=== PATIENT | male | born 1980 ===

== ENCOUNTER 2022-05-02 12:24 | Inpatient (IN) | payer SELFPAY ==
[2022-05-02] VITALS (9 sets, daily range): BP systolic 111–141; BP diastolic 71–93; PULSE 64–125; RESP 15–19; TEMP 36.4–36.8; O2SAT 92–95
--- NOTE | 2022-05-02 12:33 | XR_ITS ---
WS: [id number] EXAMINATION: XR chest 1V portable [id number] REASON FOR EXAM: chest pain COMPARISON: None available. ORDER DATE: 05/02/2022 12:33 PM TECHNIQUE: A single, portable frontal chest x-ray was obtained. X-RAY FINDINGS: The lungs are clear. Pleural spaces are clear. No pleural effusions or pneumothorax. Cardiomediastinal silhouette is normal. No evidence for pulmonary edema. Soft tissue and osseous structures are unremarkable. No tubes or lines are present. XR/XR chest 1V portable [id number] IMPRESSION: Unremarkable frontal portable chest x-ray.
--- NOTE | 2022-05-02 12:33 | ECG_ITS ---
[facility] Test Date: 2022-05-02 Pat Name: Pascual Castaneda Department: Room: Gender: Male [employer]ator: : 1980 Requested By: Mey Phillips Order Number: [id number] Sheila MD: Diego Duron M.D. Measurements Intervals [place] Rate: 72 P: 37 CO: 136 QRS: 100 QRSD: 102 T: 12 QT: 374 QTc: 410 Interpretive Statements SINUS RHYTHM WITH SINUS ARRHYTHMIA BORDERLINE RIGHT AXIS DEVIATION [QRS AXIS > 90] LOW QRS VOLTAGE IN PRECORDIAL LEADS [QRS DEFLECTION < 1.0 mV IN CHEST LEADS] INCOMPLETE RIGHT BUNDLE BRANCH BLOCK [90+ ms QRS DURATION, TERMINAL R IN V1/V2, 40+ ms S IN I/aVL/V4/V5/V6] PROBABLE INFERIOR MYOCARDIAL INFARCTION , PROBABLY OLD [35 ms Q WAVE IN II/aVF] No previous ECG available for comparison Electronically Signed On 05-02-2022 16:32:16 CDT by Diego Duron M.D. [id number]
--- NOTE | 2022-05-02 13:16 | CTR_ITS ---
PROCEDURE INFORMATION: Exam: CTA Chest With Contrast Exam date and time: 05/02/2022 2:21 PM Age: 41 years old Clinical indication: Pain; Dyspnea; Chest pressure; Additional info: Dyspena chest pain TECHNIQUE: Imaging protocol: Computed tomographic angiography of the chest with contrast. 3D rendering (Not supervised by radiologist): MIP and/or 3D reconstructed images were created by the technologist. Radiation optimization: All CT scans at this facility use at least one of these dose optimization techniques: automated exposure control; mA and/or kV adjustment per patient size (includes targeted exams where dose is matched to clinical indication); or iterative reconstruction. Contrast material: OMNI 350; Contrast volume: 97 ml; Contrast route: INTRAVENOUS (IV); REPORTING DATA: Count of CT and Cardiac NM exams in prior 12 months: This patient has received 0 known CTs and 0 known cardiac nuclear medicine studies in the 12 months prior to the current study. COMPARISON: No relevant prior studies available. RADIATION DOSE METRICS: Total DLP (mGy-cm): 444.76 FINDINGS: Pulmonary arteries: The pulmonary arteries are adequately opacified for evaluation to the subsegmental level. There is no filling defect to suggest embolism. Aorta: The aorta is unremarkable. There is no aneurysm. Lungs: There is subsegmental atelectasis in the left lower lobe. There is no consolidation. Pleural spaces: There is no pleural effusion or pneumothorax. Heart: There is mild cardiac enlargement. There is no pericardial effusion. Lymph nodes: There is no mediastinal or hilar lymphadenopathy. Liver: There is diffuse very low attenuation of the liver parenchyma (water density). Pancreas: There is edema associated with the pancreatic tail. Spleen: The spleen is moderately enlarged. Bones/joints: Bones are unremarkable. Soft tissues: The extrathoracic soft tissues are unremarkable. CT/CT angio chest PE protcl [id number] IMPRESSION: 1. Edema at the pancreatic tail. Possible acute interstitial edematous pancreatitis. Correlate with pancreatic enzyme levels and consider abdomen CT. 2. Severe hepatic steatosis. 3. Moderate splenic enlargement. 4. No pulmonary embolism.
[2022-05-02 13:35] LABS: ABG PCO2 49.2 mmHg (35-45); ABG PH Result 7.41 (7.35-7.45); Alveolar-Arterial Oxygen Gradi 1.2 mmHg (5-10); Arterial Blood Gas Hematocrit 49.7 % (42-52); Base Excess ABG 4.9 mmol/L (-2.0-2.0); Blood Gas Allen Test Pos; Blood Gas Operator Identificat BROMA; Blood Gas Sample Site Radial, left; Blood Gas Sample Type Arterial; Carboxyhemoglobin 1.6 %THgb (0.4-20.1); HCO3 ABG 30.9 mmol/L (22-26); HGB O2 Sat 92.4 % (95-100); Ionized Calcium Level - ABG 1.2 mmol/L (1.1-1.4); Methemoglobin 2.9 % (0.4-1.5); Oxygen Device NC; Oxygen Saturation ABG 96.8; PO2 ABG 79.8 mmHg (80.0-100.0); Potassium Level - ABG 3.6 mmol/L (3.5-5.0); Total Hemoglobin 16.2 g/dL (14-18)
[2022-05-02 13:43] LABS: Albumin Level 4.3 g/dL (3.5-5.2); Alkaline Phosphatase 92 U/L (40-130); Blood Urea Nitrogen 10 mg/dL (6-20); Calcium 9.5 mg/dL (8.5-10.5); Carbon Dioxide 25 mmol/L (22-29); Chloride 93 mmol/L (98-107); Glomerular Filtration Rate 107.1 mL/min (90-130); Glucose 454 mg/dL (65-115); Osmolality Calculated 297 mOsm/kg (285-295); Sodium 134 mmol/L (136-145); Total Bilirubin 0.5 mg/dL (0.15-1.2); Total Protein 7.3 g/dL (6.6-8.7)
[2022-05-02 13:44] LABS: Anion Gap 19.6 (5-19); Potassium 3.6 mmol/L (3.5-5.1)
[2022-05-02 13:54] LABS: Alanine Aminotransferase 70 U/L (0-41); Aspartate Amino Transferase 5 U/L (0-40); Troponin(5th) Baseline 6 ng/L (0-15)
--- NOTE | 2022-05-02 13:55 | W.ED.CHESTPA ---
HPI - Chest Pain General: Chief Complaint: Chest Pain Stated Complaint: n/v chest pain Time Seen by Provider: 05/02/22 12:44 Source: patient Mode of arrival: ambulatory History of Present Illness: 41-year-old male presents emergency room complaint initially of chest pain and shortness of breath began suddenly while he was at work today. No history of coronary artery disease. He is somewhat short of breath has pain with taking a deep breath. No hemoptysis. Nausea without vomiting. MD complaint: chest pain Onset (ago): hour(s) Timing of current episode: constant Prior episodes: No Onset: during rest Relieving factors: nothing Exacerbating factors: nothing Context: recent illness Associated symptoms: Deny abdominal pain, diaphoresis, dyspnea, fever(s), leg edema, nausea, palpitations, sense of impending doom, syncope or vomiting Treatment prior to arrival: none Review of Systems Const: Denies: fever(s), chills, fatigue, malaise or diaphoresis ENMT: Denies: throat pain, ear or mastoid pain, nasal discharge or nasal congestion Card: Reports: chest pain; Denies: palpitations, irregular heart rhythm, edema or syncope Resp: Denies: dyspnea GI: Denies: abdominal pain, nausea or vomiting : Denies: flank pain, dysuria, urinary frequency or urinary urgency Skin/Breast: Denies: rash or pruritus Physical Exam Const: GENERAL APPEARANCE: cooperative ORIENTATION/CONSCIOUSNESS: Yes awake, Yes oriented to person, Yes oriented to place and Yes oriented to time HENMT: COMMON NORMALS: normocephalic, atraumatic and hearing grossly normal bilaterally HEAD & SCALP: normocephalic and atraumatic Resp: COMMON NORMALS: normal respiratory effort, No retractions, No use of accessory muscles and clear to auscultation bilaterally AUSCULTATION: clear to auscultation bilaterally Cardio: COMMON NORMALS: regular rate, regular rhythm and No murmurs present (Cardio) RATE: regular rate RHYTHM: regular rhythm GI: COMMON NORMALS: No hepatosplenomegaly present AUSCULTATION: Yes normoactive bowel sounds PALPATION: Yes Tenderness to palpation present (GI) Details: LUQ, No Guarding due to palpation present (GI) and Yes No hepatosplenomegaly present Extremity: COMMON NORMALS: normal to inspection, capillary refill normal, no clubbing, cyanosis or edema, no calf tenderness and no pedal edema Neuro: SENSORIUM/ORIENTATION: Yes oriented to person, Yes oriented to place and Yes oriented to time Skin: COMMON NORMALS: no rashes or lesions noted GENERAL SKIN EXAM: no rashes or lesions noted Course Vital Signs: Vital signs: Vital Signs Temperature 98.2 F 05/04/22 04:00 Pulse Rate 117 H 05/04/22 09:00 Respiratory Rate 16 05/04/22 09:00 Blood Pressure 139/85 05/04/22 09:00 Pulse Oximetry 93 05/04/22 07:00 Oxygen Delivery Me thod 05/02/22 20:43 Oxygen Flow Rate 1 05/02/22 20:43 MDM - Chest Pain Medical Decision Making Labs imaging and EKG reviewed. Cardiac enzymes show no significant change EKG does not show acute ST changes. CTA of the chest does not show PE but does show acute pancreatitis CT of the abdomen and pelvis confirms. Triglycerides elevated blood sugar also markedly elevated we will give IV insulin and fluids here. I discussed Dr. Son. Early result of the triglycerides Dr. Son started to insulin drip and will be admitting the patient to the ICU. Medical Records I reviewed the patient's medical records. Lab Data I reviewed the patient's lab results. 05/02/22 12:50 05/02/22 12:50 Radiology Impressions Chest CTA 05/02/22 13:16 IMPRESSION: 1. Edema at the pancreatic tail. Possible acute interstitial edematous pancreatitis. Correlate with pancreatic enzyme levels and consider abdomen CT. 2. Severe hepatic steatosis. 3. Moderate splenic enlargement. 4. No pulmonary embolism. Abdomen/Pelvis CT 05/02/22 16:11 IMPRESSION: 1. Acute pancreatitis. 2. Hepatomegaly and hepatic steatosis. Abdomen X-Ray 05/04/22 04:00 IMPRESSION: Nonspecific bowel gas pattern Chest X-Ray 05/04/22 04:00 IMPRESSION: Unremarkable frontal portable chest x-ray. Laboratory Results WBC 11.9 10^3/uL (4.0-10.0) H 05/02/22 12:50 RBC 6.23 10^6/uL (4.1-5.3) H 05/02/22 12:50 Hgb 17.0 g/dL (11.7-16.6) H 05/02/22 12:50 Hct 49.4 % (42.0-52.0) 05/02/22 12:50 MCV 79.3 fl (80-94) L 05/02/22 12:50 MCH 27.3 pg (28.0-34.0) L 05/02/22 12:50 MCHC 34.4 g/dL (30.0-36.0) 05/02/22 12:50 RDW 14.8 % (12.1-15.1) 05/02/22 12:50 Plt Count 230 10^3/cmm (130-400) 05/02/22 12:50 MPV 11.4 fL (7.4-10.4) H 05/02/22 12:50 Neut % (Auto) 54.4 % 05/02/22 12:50 Lymph % (Auto) 35.5 % 05/02/22 12:50 Garfield % (Auto) 6.0 % 05/02/22 12:50 Eos % (Auto) 2.6 % 05/02/22 12:50 Baso % (Auto) 0.8 % 05/02/22 12:50 Neut # (Auto) 6.49 10^3/uL (1.8-7.7) 05/02/22 12:50 Lymph # (Auto) 4.2 10^3/uL (0.8-4.8) 05/02/22 12:50 Garfield # (Auto) 0.7 10^3/uL (0.2-0.9) 05/02/22 12:50 Eos # (Auto) 0.3 10^3/uL (0.0-0.8) 05/02/22 12:50 Baso # (Auto) 0.1 10^3/uL (0.0-0.1) 05/02/22 12:50 Nucleated RBC % (auto) 1.4 % 05/02/22 12:50 Nucleated RBCs # 0.2 /100WBC 05/02/22 12:50 Specimen Type Arterial 05/02/22 13:25 Sample Site Radial, left 05/02/22 13:25 ABG pH 7.41 (7.35-7.45) 05/02/22 13:25 ABG pCO2 49.2 mmHg (35-45) H 05/02/22 13:25 ABG pO2 79.8 mmHg (80.0-100.0) L 05/02/22 13:25 ABG HCO3 30.9 mmol/L (22-26) H 05/02/22 13:25 ABG O2 Saturation 96.8 05/02/22 13:25 ABG Base Excess 4.9 mmol/L (-2.0-2.0) H 05/02/22 13:25 Bennett Test Pos 05/02/22 13:25 A-a O2 Gradient 1.2 mmHg (5-10) L 05/02/22 13:25 Hematocrit 49.7 % (42-52) 05/02/22 13:25 Hgb O2 Saturation 92.4 % (95-100) L 05/02/22 13:25 Carboxyhemoglobin 1.6 %THgb (0.4-20.1) 05/02/22 13:25 Methemoglobin 2.9 % (0.4-1.5) H 05/02/22 13:25 Total Hemoglobin 16.2 g/dL (14-18) 05/02/22 13:25 Sodium 140.0 mmol/L (131-143) 05/02/22 13:25 Potassium 3.6 mmol/L (3.5-5.0) 05/02/22 13:25 Glucose 459.0 mg/dL (70-115) H 05/02/22 13:25 Ionized Calcium 1.2 mmol/L (1.1-1.4) 05/02/22 13:25 O2 Delivery Device Nc 05/02/22 13:25 O2 Liters/Min 228.0 % 05/02/22 13:25 Gate Mortiser Operator ID Broma 05/02/22 13:25 Sodium 134 mmol/L (136-145) L 05/02/22 12:50 Potassium 3.6 mmol/L (3.5-5.1) 05/02/22 12:50 Chloride 93 mmol/L (98-107) L 05/02/22 12:50 Carbon Dioxide 25 mmol/L (22-29) 05/02/22 12:50 Anion Gap 19.6 (5-19) H 05/02/22 12:50 BUN 10 mg/dL (6-20) 05/02/22 12:50 Creatinine 0.8 mg/dL (0.7-1.2) 05/02/22 12:50 GFR Calculation 107.1 mL/min (90-130) 05/02/22 12:50 Glucose 454 mg/dL (65-115) H 05/02/22 12:50 Estimat Average Glucose 272 05/02/22 12:50 Hemoglobin A1c 11.1 % (4.0-6.0) H 05/02/22 12:50 Calculated Osmolality 297 mOsm/kg (285-295) H 05/02/22 12:50 Calcium 9.5 mg/dL (8.5-10.5) 05/02/22 12:50 Total Bilirubin 0.5 mg/dL (0.15-1.2) 05/02/22 12:50 AST 5 U/L (0-40) 05/02/22 12:50 ALT 70 U/L (0-41) H 05/02/22 12:50 Alkaline Phosphatase 92 U/L (40-130) 05/02/22 12:50 Troponin T Baseline 6 ng/L (0-15) 05/02/22 12:50 Troponin T 120 Minute 6.00 ng/L (0-15) 05/02/22 14:40 Delta Troponin T 0 ABS# (0-10) 05/02/22 14:40 Total Protein 7.3 g/dL (6.6-8.7) 05/02/22 12:50 Albumin 4.3 g/dL (3.5-5.2) 05/02/22 12:50 Globulin 3.0 g/dL (1.3-4.6) 05/02/22 12:50 Triglycerides 1702 mg/dL (0-150) H 05/02/22 16:40 LDL Cholesterol Direct 24 mg/dL (0-100) 05/02/22 16:40 Lipase 1795 U/L (13-60) H 05/02/22 17:39 Serum Ketones Negative (Negative) 05/02/22 16:40 Discharge Plan Discharge Patient Disposition: Admitted As Inpatient Admit Provider: Kaylen Son Clinical Impression: Acute pancreatitis, Diabetes mellitus, Hypertriglyceridemia Condition: Stable Coding Level of Care Code ED Plating Machine Operator for Chg Fwjoi
[2022-05-02] MEDS: iohexol 350 mg/mL 500 mL Btl (per mL) IV (14:25)
[2022-05-02] MEDS: diphenhydrAMINE 50 mg/mL SDV 1mL IVP (14:34)
[2022-05-02] MEDS: ketorolac 30 mg/mL INJ IVP (14:50)
[2022-05-02] MEDS: sodium chloride 0.9% 1,000 ML 999 ML IV ×3 (15:25→18:00)
[2022-05-02] MEDS: morphine 4 mg/mL SDV 1 mL IVP (15:25)
[2022-05-02] MEDS: ondansetron 2 mg/ML SDV 2 mL 4 MG IVP (15:25)
[2022-05-02 15:29] LABS: Basophils # 0.1 10^3/uL (0.0-0.1); Basophils % 0.8 %; Eosinophils # 0.3 10^3/uL (0.0-0.8); Eosinophils % 2.6 %; Hematocrit 49.4 % (42.0-52.0); Lymphocytes # 4.2 10^3/uL (0.8-4.8); Lymphocytes % 35.5 %; Mean Corpuscular HGB Conc 34.4 g/dL (30.0-36.0); Mean Corpuscular Hemoglobin 27.3 pg (28.0-34.0); Mean Corpuscular Volume 79.3 fl (80-94); Mean Platelet Volume 11.4 fL (7.4-10.4); Monocytes # 0.7 10^3/uL (0.2-0.9); Neutrophils # 6.49 10^3/uL (1.8-7.7); Neutrophils % 54.4 %; Nucleated Red Blood Cells # 0.2 /100WBC; Nucleated Red Blood Cells % 1.4 %; Platelet Count 230 10^3/cmm (130-400); Red Blood Count 6.23 10^6/uL (4.1-5.3); Red Cell Distribution Width 14.8 % (12.1-15.1); White Blood Count 11.9 10^3/uL (4.0-10.0)
--- NOTE | 2022-05-02 15:52 | ECG_ITS ---
[facility] Test Date: 2022-05-02 Pat Name: Pascual Castaneda Department: Room: Gender: Male [employer]ation: : 1980 Requested By: Mey Phillips Order Number: [id number] Sheila MD: Diego Duron M.D. Measurements Intervals [place] Rate: 95 P: 61 FL: 164 QRS: -15 QRSD: 112 T: 19 QT: 366 QTc: 462 Interpretive Statements SINUS RHYTHM INDETERMINATE AXIS LOW QRS VOLTAGE IN PRECORDIAL LEADS [QRS DEFLECTION < 1.0 mV IN CHEST LEADS] INCOMPLETE RIGHT BUNDLE BRANCH BLOCK [90+ ms QRS DURATION, TERMINAL R IN V1/V2, 40+ ms S IN I/aVL/V4/V5/V6] INFERIOR MYOCARDIAL INFARCTION , PROBABLY OLD [40+ ms Q WAVE AND/OR ST/T ABNORMALITY IN II/aVF] Compared to ECG 05/02/2022 12:32:18 Indeterminate axis now present Sinus arrhythmia no longer present Myocardial infarct finding still present Electronically Signed On 05-02-2022 16:45:59 CDT by Diego Duron M.D. [id number]
[2022-05-02 16:09] LABS: Troponin 5 2HR Delta 0 ABS# (0-10)
[2022-05-02 16:09] LABS: Lipase 2680 U/L (13-60)
--- NOTE | 2022-05-02 16:11 | CTR_ITS ---
PROCEDURE INFORMATION: Exam: CT Abdomen And Pelvis Without Contrast Exam date and time: 05/02/2022 5:26 PM Age: 41 years old Clinical indication: Abdominal pain; Localized; Upper TECHNIQUE: Imaging protocol: Computed tomography of the abdomen and pelvis without contrast. Radiation optimization: All CT scans at this facility use at least one of these dose optimization techniques: automated exposure control; mA and/or kV adjustment per patient size (includes targeted exams where dose is matched to clinical indication); or iterative reconstruction. REPORTING DATA: Count of CT and Cardiac NM exams in prior 12 months: This patient has received [address] and 0 known cardiac nuclear medicine studies in the 12 months prior to the current study. COMPARISON: CT angio chest PE protcl [id number] 05/02/2022 2:21 PM RADIATION DOSE METRICS: Total DLP (mGy-cm): 1088.73 FINDINGS: Lungs: Bibasilar atelectasis is noted. Liver: The liver is mildly enlarged and demonstrates fatty infiltration changes. No parenchymal lesion is seen. Gallbladder and bile ducts: Normal. No calcified stones. No ductal dilation. Pancreas: Peripancreatic fat stranding and fluid are noted. No pancreatic ductal dilatation is seen. Spleen: Normal. No splenomegaly. Adrenal glands: Normal. No mass. Kidneys and ureters: Renal excretion of contrast from recent radiographic exam is noted. The kidneys appear normal. No hydronephrosis. Stomach and bowel: Unremarkable. No obstruction. No mucosal thickening. Appendix: The appendix is normal. Intraperitoneal space: Unremarkable. No free air. No significant fluid collection. Vasculature: Unremarkable. No abdominal aortic aneurysm. Lymph nodes: Unremarkable. No enlarged lymph nodes. Urinary bladder: Unremarkable as visualized. Reproductive: Unremarkable as visualized. Bones/joints: Bilateral L5 spondylolysis is noted. No acute fracture. Soft tissues: Small umbilical and bilateral indirect inguinal hernias containing fat are noted. CT/CT abdomen pelvis wo con [id number] IMPRESSION: 1. Acute pancreatitis. 2. Hepatomegaly and hepatic steatosis.
[2022-05-02] MEDS: insulin regular-human 100 units/1 mL 10 UNIT IVP (16:44)
[2022-05-02 17:38] LABS: Ketone (Acetest) Serum Negative (Negative)
[2022-05-02 18:31] LABS: Triglycerides 1702 mg/dL (0-150)
[2022-05-02 18:44] LABS: Glucose Point of Care 313 mg/dL (70-110)
[2022-05-02 18:46] LABS: LDL Cholesterol Direct 24 mg/dL (0-100)
[2022-05-02 19:01] LABS: Lipase 1795 U/L (13-60)
[2022-05-02] MEDS: sodium chloride 0.9% 1,000 ML 150 ML IV (19:55)
[2022-05-02 20:55] LABS: Glucose Point of Care 351 mg/dL (70-110)
[2022-05-02 21:12] LABS: Troponin 5 6HR Delta 0 ng/L (0-12)
[2022-05-02] MEDS: morphine 4 mg/mL SDV 1 mL 2 MG IVP (21:29)
[2022-05-02] MEDS: enoxaparin 40 mg/0.4 mL Syringe SUBCUT (21:30)
--- NOTE | 2022-05-02 21:40 | P.HP_ITS ---
Providers/Chief Complaint Admitting Physician: Kaylen Son MD Chief Complaint: n/v chest pain History of Present Illness Pascual Castaneda is a 41 year old male without known significant past medical history who presents to the emergency room today with complaints of abdominal pain, sudden onset this afternoon after eating his lunch. Patient had some meat tacos for lunch at the [employer] where he works. Shortly thereafter he started to feel sick to his stomach and started throwing up. No hematemesis or melena. No diarrhea. In the ER he was found to have hyper glycemia, mild anion gap of 19, negative serum ketones, elevated lipase and CT evidence of acute pancreatitis. Patient does not have a past medical history of pancreatitis. Denies any alcohol consumption recently. He is not a known diabetic. Has a family history of cholesterol problems Review of Systems General: Reports: 10 or more systems reviewed and unremarkable except in HPI and below Const: Denies: fever(s), chills or body aches Eyes: Denies: change in vision, blurry vision or photophobia ENMT: Reports: hoarseness; Denies: throat pain, enlarged tonsils, odynophagia or nasal congestion Card: Denies: chest pain, palpitations, irregular heart rhythm, edema, swelling of feet/ankles, lightheadedness, pre-syncope, dyspnea on exertion or orthopnea Resp: Denies: dyspnea, productive cough, non-productive cough, wheezing, stridor, pain on inspiration, change in phlegm color, hemoptysis or chest congestion GI: Denies: abdominal pain, nausea, vomiting, hematemesis, coffee ground emesi s, dysphagia, heartburn, diarrhea, constipation, GI cramping, change in stool character, hematochezia or melena : Denies: flank pain, dysuria, urinary frequency, urinary urgency, urinary hesitancy or hematuria Musc: Denies: neck pain, back pain, extremity pain, joint swelling, joint warmth or deformity Neuro: Denies: headache(s), numbness in extremities, weakness in extremities, sensory changes, difficulty walking, frequent falls, dizziness, vertigo, behavioral changes, Slurred speech present or seizure-like activity Psych: Denies: anxiety, depression, suicidal ideation or homicidal ideation Endo: Denies: polyuria, polydipsia, tired all the time, cold intolerance or hot flashes Anuj/Lymph: Denies: easy bruising or easy bleeding Medications/Allergies Home Medications Medication Instructions Recorded Confirmed Last Taken Type acetaminophen 500 mg tablet 1,000 mg PO Q6H PRN Pain 05/02/22 05/02/22 Unknown History Allergies Allergy/AdvReac Type Severity Reaction Status Date / Time Iodinated Contrast Media Allergy Severe ALGY-Swell Verified 05/02/22 14:31 Lip/Tongue/Throat Vitals/I&O/Wt Last Vital Signs Temp 97.5 F L 05/02/22 20:43 Pulse 111 H 05/02/22 20:43 Resp 19 H 05/02/22 21:29 BP 136/83 05/02/22 20:43 Pulse Ox 94 05/02/22 21:29 O2 Del Method 05/02/22 20:43 O2 Flow Rate 1 05/02/22 20:43 05/02/22 05/02/22 05/02/22 06:59 14:59 22:59 Intake Total 3000 / 3000 Balance 3000 / 3000 Weight last 48 hrs Weight 107.048 kg Physical Exam Narrative: General: No acute distress, AO x3 HEENT: PERRLA, pupils bilaterally equal and reactive, pallors not present Chest: Normal vesicular breath sounds, no added sounds, equal good air entry bilaterally CVS: S1-S2 regular, no murmurs, no tachycardia, no gallops, no rubs Abdomen: TTP epigatsric area and llQ Neuro: No focal deficits, no facial deformity, AO x3, power 5/5 in all limbs Data 05/02/22 12:50 05/02/22 12:50 Other Labs: [address] [address] [address] Scan Report Signed Patient: Pascual Castaneda Unit #: [id number] : 1980 Age/Sex: 41 / M ADM Date: 05/02/22 Loc: ER Room/Bed: Attending Dr: Ordering Provider/Ordering MD: Wade Doan DO Date of Service: 05/02/22 Procedure(s): CT abdomen pelvis wo con [id number] Accession Number(s): [id number] Report Number: [id number] PROCEDURE INFORMATION: Exam: CT Abdomen And Pelvis Without Contrast Exam date and time: 05/02/2022 5:26 PM Age: 41 years old Clinical indication: Abdominal pain; Localized; Upper TECHNIQUE: Imaging protocol: Computed tomography of the abdomen and pelvis without contrast. Radiation optimization: All CT scans at this facility use at least one of these dose optimization techniques: automated exposure control; mA and/or kV adjustment per patient size (includes targeted exams where dose is matched to clinical indication); or iterative reconstruction. REPORTING DATA: Count of CT and Cardiac NM exams in prior 12 months: This patient has received [address] and 0 known cardiac nuclear medicine studies in the 12 months prior to the current study. COMPARISON: CT angio chest PE protcl [id number] 05/02/2022 2:21 PM RADIATION DOSE METRICS: Total DLP (mGy-cm): 1088.73 FINDINGS: Lungs: Bibasilar atelectasis is noted. Liver: The liver is mildly enlarged and demonstrates fatty infiltration changes. No parenchymal lesion is seen. Gallbladder and bile ducts: Normal. No calcified stones. No ductal dilation. Pancreas: Peripancreatic fat stranding and fluid are noted. No pancreatic ductal dilatation is seen. Spleen: Normal. No splenomegaly. Adrenal glands: Normal. No mass. Kidneys and ureters: Renal excretion of contrast from recent radiographic exam is noted. The kidneys appear normal. No hydronephrosis. Stomach and bowel: Unremarkable. No obstruction. No mucosal thickening. Appendix: The appendix is normal. Intraperitoneal space: Unremarkable. No free air. No significant fluid collection. Vasculature: Unremarkable. No abdominal aortic aneurysm. Lymph nodes: Unremarkable. No enlarged lymph nodes. Urinary bladder: Unremarkable as visualized. Reproductive: Unremarkable as visualized. Bones/joints:? Bilateral L5 spondylolysis is noted. No acute fracture. Soft tissues: Small umbilical and bilateral indirect inguinal hernias containing fat are noted. CT/CT abdomen pelvis wo con [id number] IMPRESSION: 1. ? Acute pancreatitis. 2. ? Hepatomegaly and hepatic steatosis. ? [employer] [address] [address] [address] Scan Report Signed Patient: Pascual Castaneda Unit #: [id number] : 1980 Age/Sex: 41 / M ADM Date: 05/02/22 Loc: ER Room/Bed: Attending Dr: Ordering Provider/Ordering MD: Wade Doan DO Date of Service: 05/02/22 Procedure(s): CT angio chest PE protcl [id number] Accession Number(s): [id number] Report Number: [id number] PROCEDURE INFORMATION: Exam: CTA Chest With Contrast Exam date and time: 05/02/2022 2:21 PM Age: 41 years old Clinical indication: Pain; Dyspnea; Chest pressure; Additional info: Dyspena chest pain TECHNIQUE: Imaging protocol: Computed tomographic angiography of the chest with contrast. 3D rendering (Not supervised by radiologist): MIP and/or 3D reconstructed images were created by the technologist. Radiation optimization: All CT scans at this facility use at least one of these dose optimization techniques: automated exposure control; mA and/or kV adjustment per patient size (includes targeted exams where dose is matched to clinical indication); or iterative reconstruction. Contrast material: OMNI 350; Contrast volume: 97 ml; Contrast route: INTRAVENOUS (IV);? REPORTING DATA: Count of CT and Cardiac NM exams in prior 12 months: This patient has received 0 known CTs and 0 known cardiac nuclear medicine studies in the 12 months prior to the current study. COMPARISON: No relevant prior studies available. RADIATION DOSE METRICS: Total DLP (mGy-cm): 444.76 FINDINGS: Pulmonary arteries: The pulmonary arteries are adequately opacified for evaluation to the subsegmental level. There is no filling defect to suggest embolism. Aorta: The aorta is unremarkable. There is no aneurysm. Lungs: There is subsegmental atelectasis in the left lower lobe. There is no consolidation. Pleural spaces: There is no pleural effusion or pneumothorax. Heart: There is mild cardiac enlargement. There is no pericardial effusion. Lymph nodes: There is no mediastinal or hilar lymphadenopathy. Liver: There is diffuse very low attenuation of the liver parenchyma (water density). Pancreas: There is edema associated with the pancreatic tail. Spleen: The spleen is moderately enlarged. Bones/joints: Bones are unremarkable. Soft tissues: The extrathoracic soft tissues are unremarkable. CT/CT angio chest PE protcl [id number] IMPRESSION: 1. ? Edema at the pancreatic tail. Possible acute interstitial edematous pancreatitis. Correlate with pancreatic enzyme levels and consider abdomen CT. 2. ? Severe hepatic steatosis. 3. ? Moderate splenic enlargement. 4. ? No pulmonary embolism. A&P Assessment and plan (1) Acute pancreatitis: (2) Hypertriglyceridemia: Plan hypertriglyceridemia induced pancreatitis admit to ICU start insulin drip at 0.1u/kg/hr Tg level 1700 accuecheck every one hour tg level q12h until goal <500 check lipid panel , a1c , alcohol level, drug screen , serum ketones npo ns @150 cc/hr k goal 4 prn morphine, toradol for pain Attestations Medical Necessity Statement*: > 2 midnight admission anticipated for insulin drip, IVF, managaemnt of pancreatitis Coding Level of Care Code Critical Care >/= 30 minutes Diagnoses Acute pancreatitis K85.90 Hypertriglyceridemia E78.1
--- NOTE | 2022-05-02 21:53 | ECG_ITS ---
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 Measurements Intervals [place] Rate: 120 P: 60 CT: 162 QRS: 149 QRSD: 103 T: 19 QT: 336 QTc: 476 Interpretive Statements SINUS TACHYCARDIA INDETERMINATE AXIS INCOMPLETE RIGHT BUNDLE BRANCH BLOCK [90+ ms QRS DURATION, TERMINAL R IN V1/V2, 40+ ms S IN I/aVL/V4/V5/V6] POSSIBLE INFERIOR MYOCARDIAL INFARCTION , PROBABLY OLD [30 ms Q WAVE IN II/aVF] Compared to ECG 05/02/2022 15:52:33 Sinus rhythm no longer present Myocardial infarct finding still present Electronically Signed On 05-03-2022 7:41:30 CDT by Diego Duron M.D. [id number]
[2022-05-02 22:41] LABS: Alcohol Level < 10 mg/dL (0-10)
[2022-05-02] MEDS: insulin regular-human 250 UNIT in sodium chloride 0.9% 250 ML 11.01 UNIT IV (22:43)
[2022-05-02] MEDS: lidocaine 1% 5 ML in potassium chloride premix 100 ML 26.25 ML IV (22:43)
[2022-05-02 22:44] LABS: Estmated Average Glucose 272; Hemoglobin A1C 11.1 % (4.0-6.0)
[2022-05-03] VITALS (27 sets, daily range): BP systolic 114–155; BP diastolic 67–95; PULSE 112–126; RESP 16–24; TEMP 36.9; O2SAT 90–94
[2022-05-03 00:24] LABS: Amphetamines Screen Urine Negative (Negative); Barbiturates Screen Urine Negative (Negative); Benzodiazepines Screen Urine Negative (Negative); Cocaine Screen Urine Negative (Negative); Opiate Screen Urine Positive (Negative); PCP Screen Urine Negative (Negative); THC Screen Urine Negative (Negative)
[2022-05-03 00:58] LABS: Glucose Point of Care 305 mg/dL (70-110)
[2022-05-03 00:58] LABS: Glucose Point of Care 347 mg/dL (70-110)
[2022-05-03 00:58] LABS: Glucose Point of Care 316 mg/dL (70-110)
[2022-05-03 01:10] LABS: Glucose Point of Care 254 mg/dL (70-110)
[2022-05-03] MEDS: ondansetron 2 mg/ML SDV 2 mL 4 MG IVP ×2 (01:13→19:23)
[2022-05-03 02:10] LABS: Glucose Point of Care 232 mg/dL (70-110)
[2022-05-03] MEDS: morphine 4 mg/mL SDV 1 mL 2 MG IVP ×4 (02:37→19:16)
[2022-05-03] MEDS: dextrose 5%-sod chloride 0.45% 1,000 ML 150 ML IV ×3 (02:38→16:28)
[2022-05-03] MEDS: metoclopramide 5 mg/mL SDV 2 mL IVP (03:01)
[2022-05-03 03:09] LABS: Glucose Point of Care 240 mg/dL (70-110)
[2022-05-03 03:17] LABS: Basophils # 0.1 10^3/uL (0.0-0.1); Basophils % 0.3 %; Hematocrit 46.7 % (42.0-52.0); Hemoglobin 17.1 g/dL (11.7-16.6); Lymphocytes # 1.7 10^3/uL (0.8-4.8); Mean Corpuscular HGB Conc 36.6 g/dL (30.0-36.0); Mean Corpuscular Hemoglobin 29.1 pg (28.0-34.0); Mean Corpuscular Volume 79.4 fl (80-94); Mean Platelet Volume 11.1 fL (7.4-10.4); Monocytes # 1.2 10^3/uL (0.2-0.9); Monocytes % 6.2 %; Neutrophils # 16.04 10^3/uL (1.8-7.7); Nucleated Red Blood Cells % 0 %; Platelet Count 270 10^3/cmm (130-400); Red Blood Count 5.88 10^6/uL (4.1-5.3); Red Cell Distribution Width 13.7 % (12.1-15.1); White Blood Count 19.1 10^3/uL (4.0-10.0)
[2022-05-03 03:37] LABS: Albumin Level 3.5 g/dL (3.5-5.2); Alkaline Phosphatase 68 U/L (40-130); Blood Urea Nitrogen 9 mg/dL (6-20); Calcium 8.1 mg/dL (8.5-10.5); Carbon Dioxide 23 mmol/L (22-29); Chloride 101 mmol/L (98-107); Globulin 2.8 g/dL (1.3-4.6); Glomerular Filtration Rate 184.2 mL/min (90-130); Glucose 208 mg/dL (65-115); HDL Cholesterol 20 mg/dL (60-100); Osmolality Calculated 287 mOsm/kg (285-295); Sodium 136 mmol/L (136-145); Total Bilirubin 0.5 mg/dL (0.15-1.2); Total Protein 6.3 g/dL (6.6-8.7)
[2022-05-03 03:49] LABS: Alanine Aminotransferase < 5 U/L (0-41); Aspartate Amino Transferase 5 U/L (0-40)
[2022-05-03 03:52] LABS: Anion Gap 15.7 (5-19); Cholesterol 462 mg/dL (0-200); Potassium 3.7 mmol/L (3.5-5.1)
[2022-05-03 03:58] LABS: Triglycerides 2400 mg/dL (0-150)
[2022-05-03 03:59] LABS: Magnesium 1.5 mg/dL (1.7-2.3); Phosphorus 2.2 mg/dL (2.5-4.5)
[2022-05-03] MEDS: magnesium sulfate premix 2 GM/50 ML PIGGYBACK IV (04:28)
[2022-05-03] MEDS: lidocaine 1% 5 ML in potassium chloride premix 100 ML 26.25 ML IV ×2 (04:29→20:36)
--- NOTE | 2022-05-03 05:17 | PC.NURSE ---
Multiple clarifications on pt insulin gtt and labs made with Dr. Son and Dr. Gann throughout the night. 05/02/[address] Son to run at non-titratable rate of 0.1 units/kg/hr. Pharmacy updated to help adjust order appropriately. 05/03/22 0118 Discussed pt labs and clarified lab orders with Dr. Gann. New orders noted. 05/03/22 0244 Discussed pt labs and pt episode n/v despite prn medication. New orders noted. Told to hold insulin gtt pending am labs. 05/03/[address] Gann on am labs. New orders noted. To resume insulin gtt at same rate once electrolyte replacement had been started.
[2022-05-03 06:11] LABS: Glucose Point of Care 287 mg/dL (70-110)
[2022-05-03 06:11] LABS: Glucose Point of Care 263 mg/dL (70-110)
[2022-05-03 07:44] LABS: Glucose Point of Care 220 mg/dL (70-110)
[2022-05-03] MEDS: pantoprazole 40 mg SDV IVP (08:08)
[2022-05-03 08:55] LABS: Glucose Point of Care 184 mg/dL (70-110)
[2022-05-03 11:55] LABS: Glucose Point of Care 72 mg/dL (70-110)
[2022-05-03 12:41] LABS: Glucose Point of Care 197 mg/dL (70-110)
[2022-05-03 13:19] LABS: Triglycerides 1656 mg/dL (0-150)
[2022-05-03 13:36] LABS: LDL Cholesterol Direct 30 mg/dL (0-100)
[2022-05-03] MEDS: dextrose 10% 1,000 ML 30 ML IV (16:27)
[2022-05-03 16:35] LABS: Glucose Point of Care 124 mg/dL (70-110)
--- NOTE | 2022-05-03 16:59 | P.PN_ITS ---
Subjective Subjective: Patient seen approximately 45 minutes after having received morphine. He is somnolent, however wakes up easily to calling name and has an appropriate conversation. He is primarily Malagasy-speaking, however his family is at bedside at this time he and he converses in both Malagasy and Chinese. Ta chycardic heart rate 122/min. Continues to have abdominal pain nausea and vomiting. Insulin infusion currently running at 0.1units/kg/h. Triglyceride level at 1600 this morning. WBC trending up to 19,000 today, no fever Medications: Reviewed: Yes Vitals/I&O/Wt Last Vital Signs Temp 98.4 F 05/03/22 04:00 Pulse 122 H 05/03/22 16:00 Resp 24 H 05/03/22 16:00 BP 135/86 05/03/22 15:00 Pulse Ox 92 05/03/22 07:00 O2 Del Method 05/02/22 20:43 O2 Flow Rate 1 05/02/22 20:43 05/03/22 05/03/22 05/03/22 06:59 14:59 22:59 Intake Total 1174.407 / 4224.407 1000 / 1000 1000 / 2000 Output Total 1100 / 1100 Balance 74.407 / 3124.407 1000 / 1000 1000 / 2000 Weight last 48 hrs Weight 107.048 kg Physical Exam Narrative: General: No acute distress, AO x3 HEENT: PERRLA, pupils bilaterally equal and reactive, pallors not present Chest: Normal vesicular breath sounds, no added sounds, equal good air entry bilaterally CVS: S1-S2 regular, no murmurs, no tachycardia, no gallops, no rubs Abdomen: Mildly distended, tender to palpation in the epigastric region and left lower quadrant. Neuro: No focal deficits, no facial deformity, AO x3, power 5/5 in all limbs somnolent having just having received morphine. Data 05/03/22 02:25 05/03/22 11:50 A&P Assessment and plan (1) Acute pancreatitis: Acute pancreatitis,likely secondary to hypertriglyceridemia. Triglyceride level 1700 upon admission, trended up to 2400 overnight, now at 1600 with insulin Negative alcohol level. No signs of biliary obstruction. Normal LFTs. Continue treatment with insulin infusion, currently at 0.1 units/kg/h, increase fixed infusion rate to 0.2 units/kg/h. Check triglyceride level every 12 hours. Pain control with as needed morphine alternating with as needed Toradol. Continue IV fluids, currently on D5 normal saline at 150 cc an hour. We will add additional D10 at 30 cc an hour if needed for maintaining blood sugar. Potassium goal of 4. N.p.o. (2) Hypertriglyceridemia: As above. With insulin drip for acute pancreatitis, will aim to reduce triglyceride level to less than 500. Thereafter we will start fenofibrate therapy. For long-term cholesterol management (3) Diabetes mellitus: This is a new diagnosis for the patient. HbA1c of 11. Currently on insulin drip, no signs of DKA. Insulin drip for hypertriglyceridemia pancreatitis Once off the insulin drip he will transition to Lantus and sliding scale which we will aim to keep at discharge. (4) Ileus: Concerned that he may be potentially developing ileus. He has not had a bowel movement yet, able to pass flatus but thinks that this is also difficult. We will check x-ray of the abdomen. Continue to keep n.p.o., bowel rest (5) SIRS (systemic inflammatory response syndrome): Has evidence by leukocytosis, tachycardia, tachypnea Likely related to acute pancreatitis. No current signs of localizing infection. Monitor off antibiotics unless starts to spike a fever. Attestations Medical Necessity Statement*: Continued ICU admission for insulin drip, treatment of hypertriglyceridemia induced pancreatitis Coding Level of Care Code Critical Care >/= 30 minutes Diagnoses Acute pancreatitis K85.90 Hypertriglyceridemia E78.1 Diabetes mellitus E11.9 Ileus K56.7 SIRS (systemic inflammatory response syndrome) R65.10
[2022-05-03 17:12] LABS: Glucose Point of Care 131 mg/dL (70-110)
[2022-05-03 17:57] LABS: Glucose Point of Care 86 mg/dL (70-110)
[2022-05-03 18:17] LABS: Albumin Level 3.6 g/dL (3.5-5.2); Alkaline Phosphatase 67 U/L (40-130); Blood Urea Nitrogen 7 mg/dL (6-20); Carbon Dioxide 24 mmol/L (22-29); Chloride 104 mmol/L (98-107); Globulin 2.9 g/dL (1.3-4.6); Osmolality Calculated 285 mOsm/kg (285-295); Sodium 139 mmol/L (136-145); Total Bilirubin 0.8 mg/dL (0.15-1.2)
[2022-05-03 19:05] LABS: Glucose Point of Care 83 mg/dL (70-110)
[2022-05-03] MEDS: insulin regular-human 250 UNIT in sodium chloride 0.9% 250 ML 11.01 UNIT IV (19:17)
[2022-05-03 19:34] LABS: Total Protein 6.6 g/dL (6.6-8.7)
[2022-05-03 19:41] LABS: Anion Gap 14.2 (5-19); Glomerular Filtration Rate 149.2 mL/min (90-130); Potassium 3.2 mmol/L (3.5-5.1)
[2022-05-03 19:42] LABS: Calcium 7.7 mg/dL (8.5-10.5); Glucose 81 mg/dL (65-115)
[2022-05-03 19:43] LABS: Aspartate Amino Transferase 29 U/L (0-40)
[2022-05-03 19:45] LABS: Triglycerides 1223 mg/dL (0-150)
[2022-05-03 19:56] LABS: Alanine Aminotransferase 50 U/L (0-41)
[2022-05-03] MEDS: acetaminophen 325 mg Tablet 650 MG PO (19:57)
[2022-05-03] MEDS: enoxaparin 40 mg/0.4 mL Syringe SUBCUT (19:58)
[2022-05-03 20:03] LABS: LDL Cholesterol Direct 33 mg/dL (0-100)
[2022-05-03 20:11] LABS: Glucose Point of Care 90 mg/dL (70-110)
[2022-05-03] MEDS: D5-NS 0.45% + KCL 20 mEq 20 MEQ/1,000 ML BAG 150 MEQ IV (20:33)
[2022-05-03 20:45] LABS: Magnesium 2.1 mg/dL (1.7-2.3); Phosphorus 1.6 mg/dL (2.5-4.5)
[2022-05-03 21:27] LABS: Glucose Point of Care 98 mg/dL (70-110)
[2022-05-03 22:05] LABS: Glucose Point of Care 94 mg/dL (70-110)
[2022-05-04] VITALS (26 sets, daily range): BP systolic 105–139; BP diastolic 64–93; PULSE 113–122; RESP 10–29; TEMP 36.8–37.4; O2SAT 89–96
[2022-05-04 00:08] LABS: Glucose Point of Care 99 mg/dL (70-110)
[2022-05-04 00:08] LABS: Glucose Point of Care 91 mg/dL (70-110)
[2022-05-04 01:18] LABS: Glucose Point of Care 89 mg/dL (70-110)
[2022-05-04] MEDS: D5-NS 0.45% + KCL 20 mEq 20 MEQ/1,000 ML BAG 150 MEQ IV ×3 (02:09→17:54)
[2022-05-04 02:24] LABS: Glucose Point of Care 100 mg/dL (70-110)
[2022-05-04 02:52] LABS: Basophils # 0.1 10^3/uL (0.0-0.1); Basophils % 0.5 %; Eosinophils % 0.1 %; Hematocrit 45.3 % (42.0-52.0); Hemoglobin 15.2 g/dL (11.7-16.6); Lymphocytes # 1.8 10^3/uL (0.8-4.8); Lymphocytes % 11.8 %; Mean Corpuscular HGB Conc 33.6 g/dL (30.0-36.0); Mean Corpuscular Hemoglobin 26.8 pg (28.0-34.0); Mean Corpuscular Volume 79.8 fl (80-94); Mean Platelet Volume 10.5 fL (7.4-10.4); Monocytes % 6.3 %; Neutrophils # 12.18 10^3/uL (1.8-7.7); Neutrophils % 80.5 %; Nucleated Red Blood Cells % 0 %; Platelet Count 159 10^3/cmm (130-400); Red Blood Count 5.68 10^6/uL (4.1-5.3); Red Cell Distribution Width 14.3 % (12.1-15.1); White Blood Count 15.1 10^3/uL (4.0-10.0)
[2022-05-04 03:02] LABS: Glucose Point of Care 106 mg/dL (70-110)
[2022-05-04 03:38] LABS: Alkaline Phosphatase 64 U/L (40-130); Blood Urea Nitrogen 7 mg/dL (6-20); Calcium 7.6 mg/dL (8.5-10.5); Carbon Dioxide 23 mmol/L (22-29); Chloride 104 mmol/L (98-107); Glomerular Filtration Rate 184.2 mL/min (90-130); Glucose 91 mg/dL (65-115); Osmolality Calculated 282 mOsm/kg (285-295); Sodium 137 mmol/L (136-145); Total Bilirubin 0.8 mg/dL (0.15-1.2)
[2022-05-04 03:49] LABS: Anion Gap 13.6 (5-19); Potassium 3.6 mmol/L (3.5-5.1)
[2022-05-04 03:50] LABS: Aspartate Amino Transferase 5 U/L (0-40)
[2022-05-04 03:54] LABS: Alanine Aminotransferase 5 U/L (0-41)
--- NOTE | 2022-05-04 04:00 | XR_ITS ---
WS: [id number] EXAMINATION: XR chest 1V portable [id number] REASON FOR EXAM: evalaute for effusion COMPARISON: 05/02/2022 ORDER DATE: 05/04/2022 4:52 AM TECHNIQUE: A single, portable frontal chest x-ray was obtained. X-RAY FINDINGS: The lungs are clear. Pleural spaces are clear. No pleural effusions or pneumothorax. Cardiomediastinal silhouette is normal. No evidence for pulmonary edema. Soft tissue and osseous structures are unremarkable. No tubes or lines are present. XR/XR chest 1V portable [id number] IMPRESSION: Unremarkable frontal portable chest x-ray.
--- NOTE | 2022-05-04 04:00 | XR_ITS ---
WS: [id number] EXAMINATION: XR abdomen 1V* [id number] REASON FOR EXAM: evalute for ileus COMPARISON: None available. ORDER DATE: 05/04/2022 4:52 AM FINDINGS: There is a nonspecific colonic gas pattern with scattered fecal content and gas. There is very minim al small bowel dilation. No pathologic abdominal calcification is seen. XR/XR abdomen 1V* [id number] IMPRESSION: Nonspecific bowel gas pattern
[2022-05-04 04:09] LABS: Glucose Point of Care 130 mg/dL (70-110)
[2022-05-04] MEDS: morphine 4 mg/mL SDV 1 mL 2 MG IVP (04:10)
[2022-05-04 05:12] LABS: Glucose Point of Care 213 mg/dL (70-110)
[2022-05-04 06:11] LABS: Glucose Point of Care 109 mg/dL (70-110)
[2022-05-04 06:51] LABS: Glucose Point of Care 113 mg/dL (70-110)
[2022-05-04] MEDS: pantoprazole 40 mg SDV IVP (08:31)
[2022-05-04] MEDS: ketorolac 30 mg/mL INJ 15 MG IVP ×2 (08:31→15:49)
[2022-05-04 08:38] LABS: Glucose Point of Care 131 mg/dL (70-110)
[2022-05-04 09:39] LABS: Glucose Point of Care 144 mg/dL (70-110)
[2022-05-04 10:39] LABS: Glucose Point of Care 137 mg/dL (70-110)
[2022-05-04 12:21] LABS: Glucose Point of Care 199 mg/dL (70-110)
[2022-05-04 13:21] LABS: Glucose Point of Care 159 mg/dL (70-110)
[2022-05-04 13:28] LABS: Blood Urea Nitrogen 6 mg/dL (6-20); Calcium 7.5 mg/dL (8.5-10.5); Carbon Dioxide 25 mmol/L (22-29); Chloride 100 mmol/L (98-107); Glomerular Filtration Rate 149.2 mL/min (90-130); Glucose 156 mg/dL (65-115); Osmolality Calculated 275 mOsm/kg (285-295); Sodium 132 mmol/L (136-145); Triglycerides 801 mg/dL (0-150)
[2022-05-04 13:34] LABS: Anion Gap 10.6 (5-19); Potassium 3.6 mmol/L (3.5-5.1)
[2022-05-04 13:50] LABS: LDL Cholesterol Direct 64 mg/dL (0-100)
[2022-05-04] MEDS: lidocaine 1% 5 ML in potassium chloride premix 100 ML 26.25 ML IV (14:11)
[2022-05-04] MEDS: dextrose 10% 1,000 ML 60 ML IV (14:11)
[2022-05-04 14:28] LABS: Glucose Point of Care 150 mg/dL (70-110)
[2022-05-04 16:34] LABS: Glucose Point of Care 149 mg/dL (70-110)
[2022-05-04] MEDS: lidocaine 1% 5 ML in potassium chloride premix 100 ML 52.5 ML IV (17:53)
--- NOTE | 2022-05-04 18:07 | PC.NURSE ---
Patients stated that his abd pain has been better this shift. Insulin still running at this time.
[2022-05-04 18:17] LABS: Glucose Point of Care 133 mg/dL (70-110)
[2022-05-04] MEDS: insulin regular-human 250 UNIT in sodium chloride 0.9% 250 ML 11.01 UNIT IV (19:26)
[2022-05-04 19:33] LABS: Glucose Point of Care 139 mg/dL (70-110)
[2022-05-04] MEDS: enoxaparin 40 mg/0.4 mL Syringe SUBCUT (20:13)
[2022-05-04] MEDS: acetaminophen 325 mg Tablet 650 MG PO (20:13)
[2022-05-04 20:26] LABS: Glucose Point of Care 140 mg/dL (70-110)
[2022-05-04 21:26] LABS: Glucose Point of Care 151 mg/dL (70-110)
--- NOTE | 2022-05-04 21:38 | PC.NURSE ---
Labwork Patient receiving insulin IV continuously in addition to maintenance fluids with kcl. No labwork ordered for this evening; Dr. Gann contacted and orders received.
[2022-05-04 21:57] LABS: Blood Urea Nitrogen 6 mg/dL (6-20); Calcium 7.5 mg/dL (8.5-10.5); Carbon Dioxide 24 mmol/L (22-29); Chloride 101 mmol/L (98-107); Glomerular Filtration Rate 149.2 mL/min (90-130); Glucose 150 mg/dL (65-115); Osmolality Calculated 278 mOsm/kg (285-295); Sodium 134 mmol/L (136-145)
[2022-05-04 22:15] LABS: Anion Gap 12.8 (5-19); Potassium 3.8 mmol/L (3.5-5.1)
[2022-05-04 22:41] LABS: Glucose Point of Care 134 mg/dL (70-110)
[2022-05-04 22:43] LABS: Triglycerides 587 mg/dL (0-150)
--- NOTE | 2022-05-04 22:44 | PM.PN ---
Subjective Subjective: improving TG to 800 today, patient less nauseaous, had BM today, no more episodes of vomiting. COntinues on insulin drip. MOre alert and awake, better hydrated Medications: Reviewed: Yes Vitals/I&O/Wt Last Vital Signs Temp 99.4 F 05/04/22 20:00 Pulse 119 H 05/04/22 22:00 Resp 29 H 05/04/22 22:00 BP 127/81 05/04/22 22:00 Pulse Ox 90 05/04/22 22:00 O2 Del Method 05/04/22 22:00 O2 Flow Rate 1 05/02/22 20:43 05/04/22 05/04/22 05/04/22 06:59 14:59 22:59 Intake Total 1160 / 4014.694 1730 / 1730 1312.5 / 3042.5 Balance 1160 / 4014.694 1730 / 1730 1312.5 / 3042.5 Physical Exam Narrative: General: No acute distress, AO x3 HEENT: PERRLA, pupils bilaterally equal and reactive, pallors not present Chest: Normal vesicular breath sounds, no added sounds, equal good air entry bilaterally CVS: S1-S2 regular, no murmurs, no tachycardia, no gallops, no rubs Abdomen: Soft, TTP left paracolic gutter Neuro: No focal deficits, no facial deformity, AO x3, power 5/5 in all limbs Data 05/04/22 02:36 05/04/22 21:30 A&P Assessment and plan (1) Acute pancreatitis: Acute pancreatitis,likely secondary to hypertriglyceridemia. Triglyceride level 1700 upon admission, trended up to 2400 overnight, now at 1600 with insulin Negative alcohol level. No signs of biliary obstruction. Normal LFTs. Continue treatment with insulin infusion, currently at 0.1 units/kg/h, increase fixed infusion rate to 0.2 units/kg/h. Check triglyceride level every 12 hours. Pain control with as needed morphine alternating with as needed Toradol. Continue IV fluids, currently on D5 normal saline at 150 cc an hour. We will add additional D10 at 30 cc an hour if needed for maintaining blood sugar. Potassium goal of 4. N.p.o. (2) Hypertriglyceridemia: As above. With insulin drip for acute pancreatitis, will aim to reduce triglyceride level to less than 500. Thereafter we will start fenofibrate therapy. For long-term cholesterol management (3) Diabetes mellitus: This is a new diagnosis for the patient. HbA1c of 11. Currently on insulin drip, no signs of DKA. Insulin drip for hypertriglyceridemia pancreatitis Once off the insulin drip he will transition to Lantus and sliding scale which we will aim to keep at discharge. (4) Ileus: Concerned that he may be potentially developing ileus. He has not had a bowel movement yet, able to pass flatus but thinks that this is also difficult. We will check x-ray of the abdomen. Continue to keep n.p.o., bowel rest (5) SIRS (systemic inflammatory response syndrome): Has evidence by leukocytosis, tachycardia, tachypnea Likely related to acute pancreatitis. No current signs of localizing infection. Monitor off antibiotics unless starts to spike a fever. Plan plan for today: Continue insulin ifnusion until TG level < 500, alongside d10 and K supplementation, pain better controlled today Attestations Medical Necessity Statement*: insulin infusion, iv fluids for pancreatitis Coding Level of Care Code Acute Code for g Fw Diagnoses Acute pancreatitis K85.90 Hypertriglyceridemia E78.1 Diabetes mellitus E11.9 Ileus K56.7 SIRS (systemic inflammatory response syndrome) R65.10
[2022-05-04 23:12] LABS: LDL Cholesterol Direct 73 mg/dL (0-100)
[2022-05-05] VITALS (18 sets, daily range): BP systolic 97–124; BP diastolic 54–78; PULSE 105–113; RESP 14–38; TEMP 36.7–37.1; O2SAT 90–97
[2022-05-05] MEDS: ketorolac 30 mg/mL INJ 15 MG IVP ×3 (00:31→20:47)
[2022-05-05 00:49] LABS: Glucose Point of Care 118 mg/dL (70-110)
[2022-05-05 00:49] LABS: Glucose Point of Care 137 mg/dL (70-110)
[2022-05-05] MEDS: D5-NS 0.45% + KCL 20 mEq 20 MEQ/1,000 ML BAG 150 MEQ IV ×2 (01:29→08:48)
[2022-05-05 02:07] LABS: Glucose Point of Care 119 mg/dL (70-110)
[2022-05-05 03:09] LABS: Glucose Point of Care 105 mg/dL (70-110)
[2022-05-05 04:27] LABS: Glucose Point of Care 112 mg/dL (70-110)
[2022-05-05 05:38] LABS: Glucose Point of Care 104 mg/dL (70-110)
[2022-05-05] MEDS: morphine 4 mg/mL SDV 1 mL 2 MG IVP (06:02)
[2022-05-05] MEDS: ondansetron 2 mg/ML SDV 2 mL 4 MG IVP (06:06)
[2022-05-05 06:12] LABS: Basophils # 0.1 10^3/uL (0.0-0.1); Basophils % 0.5 %; Eosinophils # 0.1 10^3/uL (0.0-0.8); Eosinophils % 0.6 %; Hemoglobin 13.4 g/dL (11.7-16.6); Lymphocytes # 1.6 10^3/uL (0.8-4.8); Lymphocytes % 12.7 %; Mean Corpuscular HGB Conc 31.9 g/dL (30.0-36.0); Mean Corpuscular Hemoglobin 26.4 pg (28.0-34.0); Mean Corpuscular Volume 82.7 fl (80-94); Mean Platelet Volume 11.6 fL (7.4-10.4); Monocytes % 8.2 %; Neutrophils # 9.47 10^3/uL (1.8-7.7); Neutrophils % 77.2 %; Nucleated Red Blood Cells % 0 %; Platelet Count 137 10^3/cmm (130-400); Red Blood Count 5.08 10^6/uL (4.1-5.3); Red Cell Distribution Width 14.3 % (12.1-15.1); White Blood Count 12.3 10^3/uL (4.0-10.0)
[2022-05-05 06:28] LABS: Glucose Point of Care 119 mg/dL (70-110)
[2022-05-05 07:16] LABS: Alanine Aminotransferase 26 U/L (0-41); Albumin Level 2.5 g/dL (3.5-5.2); Alkaline Phosphatase 91 U/L (40-130); Aspartate Amino Transferase 21 U/L (0-40); Blood Urea Nitrogen 6 mg/dL (6-20); Carbon Dioxide 23 mmol/L (22-29); Chloride 101 mmol/L (98-107); Globulin 3.3 g/dL (1.3-4.6); Glomerular Filtration Rate 149.2 mL/min (90-130); Glucose 105 mg/dL (65-115); Osmolality Calculated 270 mOsm/kg (285-295); Sodium 131 mmol/L (136-145); Total Protein 5.8 g/dL (6.6-8.7); Triglycerides 520 mg/dL (0-150)
[2022-05-05 07:18] LABS: Anion Gap 10.5 (5-19); Potassium 3.5 mmol/L (3.5-5.1)
[2022-05-05 07:31] LABS: LDL Cholesterol Direct 78 mg/dL (0-100)
[2022-05-05] MEDS: pantoprazole 40 mg SDV IVP (08:47)
[2022-05-05 10:25] LABS: Glucose Point of Care 117 mg/dL (70-110)
--- NOTE | 2022-05-05 13:07 | PM.PN ---
Subjective Subjective: Patient's triglyceride level today is down to 520. He has an appetite, wishes to start eating. Pain is unchanged compared to yesterday, however overall he is appearing to be more comfortable. He has had a bowel movement today. Passing flatus. No more nausea or vomiting. Medications: Reviewed: Yes Vitals/I&O/Wt Last Vital Signs Temp 98.4 F 05/05/22 07:00 Pulse 113 H 05/05/22 10:00 Resp 14 05/05/22 10:00 BP 109/66 05/05/22 10:00 Pulse Ox 90 05/05/22 10:00 O2 Del Method 05/05/22 05:00 O2 Flow Rate 1 05/02/22 20:43 05/04/22 05/05/22 05/05/22 22:59 06:59 14:59 Intake Total 1312.5 / 3042.5 1000 / 4042.5 1000 / 1000 Balance 1312.5 / 3042.5 1000 / 4042.5 1000 / 1000 Physical Exam Narrative: General: No acute distress, AO x3 HEENT: PERRLA, pupils bilaterally equal and reactive, pallors not present Chest: Normal vesicular breath sounds, no added sounds, equal good air entry bilaterally CVS: S1-S2 regular, no murmurs, no tachycardia, no gallops, no rubs Abdomen: Soft, TTP left paracolic gutter Neuro: No focal deficits, no facial deformity, AO x3, power 5/5 in all limbs Data 05/05/22 04:42 05/05/22 04:42 A&P Assessment and plan (1) Acute pancreatitis: Acute pancreatitis,likely secondary to hypertriglyceridemia. Triglyceride level 1700 upon admission, now trended down to 520 with continuous insulin infusion since admission. Negative alcohol level. No signs of biliary obstruction. Normal LFTs. Discontinue insulin infusion today. Start gemfibrozil 600 mg p.o. twice daily. Continue IV fluids normal saline's with KCl at 100 cc an hour. Start trial of clear liquid diet today. Assess for tolerability. Pain control with as needed morphine alternating with as needed Toradol. (2) Hypertriglyceridemia: As above. Triglyceride level now down to 520. Start gemfibrozil. Discontinue insulin drip. (3) Diabetes mellitus: This is a new diagnosis for the patient. HbA1c of 11. Currently on insulin drip, no signs of DKA. We will discontinue insulin today, and place patient on 15 units of Lantus at nighttime along with sliding scale medium dose insulin. Based on 24-hour requirements will aim for basal and preprandial insulin. (4) Ileus: No longer a concern. Patient is passing flatus, having bowel movement. No nausea or vomiting. (5) SIRS (systemic inflammatory response syndrome): Has evidence by leukocytosis, tachycardia, tachypnea Likely related to acute pancreatitis. currently improving Attestations Medical Necessity Statement*: ttansfer to MEd/surg from ICU Coding Level of Care Code Acute Code for Chg Fwd Diagnoses Acute pancreatitis K85.90 Hypertriglyceridemia E78.1 Diabetes mellitus E11.9 Ileus K56.7 SIRS (systemic inflammatory response syndrome) R65.10
[2022-05-05] MEDS: sodium chlor 0.9% + KCl 20 mEq 20 MEQ/1,000 ML BAG 75 MEQ IV (13:20)
--- NOTE | 2022-05-05 15:05 | PC.NURSE ---
Patient arrived to med/surg room 267.
--- NOTE | 2022-05-05 15:14 | PC.NURSE ---
Pt was taken to [facility] via wheelchair. All belongings taken by .
[2022-05-05 17:11] LABS: Glucose Point of Care 182 mg/dL (70-110)
[2022-05-05] MEDS: gemfibrozil 600 mg Tablet PO (17:35)
[2022-05-05] MEDS: insulin lispro 100 unit/1 mL SUBCUT ×2 (17:35→20:35)
[2022-05-05 20:19] LABS: Glucose Point of Care 177 mg/dL (70-110)
[2022-05-05] MEDS: enoxaparin 40 mg/0.4 mL Syringe SUBCUT (20:34)
[2022-05-05] MEDS: insulin glargine 100 units/1 mL 15 UNIT SUBCUT (20:35)
[2022-05-06] VITALS (9 sets, daily range): BP systolic 120–144; BP diastolic 73–82; PULSE 65–107; RESP 16–18; TEMP 36.4–37.5; O2SAT 92–95
[2022-05-06] MEDS: acetaminophen 325 mg Tablet 650 MG PO ×2 (00:08→12:53)
[2022-05-06] MEDS: sodium chlor 0.9% + KCl 20 mEq 20 MEQ/1,000 ML BAG 75 MEQ IV ×2 (04:26→18:07)
[2022-05-06] MEDS: ketorolac 30 mg/mL INJ 15 MG IVP ×2 (05:21→17:29)
[2022-05-06 06:24] LABS: Glucose Point of Care 184 mg/dL (70-110)
[2022-05-06] MEDS: insulin lispro 100 unit/1 mL SUBCUT ×4 (08:23→22:18)
[2022-05-06] MEDS: gemfibrozil 600 mg Tablet PO ×2 (08:23→17:30)
[2022-05-06] MEDS: pantoprazole 40 mg SDV IVP (09:34)
[2022-05-06 11:13] LABS: Glucose Point of Care 165 mg/dL (70-110)
[2022-05-06 11:57] LABS: Basophils # 0.1 10^3/uL (0.0-0.1); Basophils % 0.5 %; Eosinophils # 0.2 10^3/uL (0.0-0.8); Eosinophils % 1.5 %; Hematocrit 39.9 % (42.0-52.0); Hemoglobin 12.6 g/dL (11.7-16.6); Lymphocytes # 1.7 10^3/uL (0.8-4.8); Lymphocytes % 13.4 %; Mean Corpuscular HGB Conc 31.6 g/dL (30.0-36.0); Mean Corpuscular Hemoglobin 26.1 pg (28.0-34.0); Mean Corpuscular Volume 82.6 fl (80-94); Mean Platelet Volume 10.4 fL (7.4-10.4); Monocytes # 1.2 10^3/uL (0.2-0.9); Monocytes % 9.3 %; Neutrophils # 9.63 10^3/uL (1.8-7.7); Nucleated Red Blood Cells % 0 %; Platelet Count 155 10^3/cmm (130-400); Red Blood Count 4.83 10^6/uL (4.1-5.3); Red Cell Distribution Width 14.6 % (12.1-15.1)
[2022-05-06 12:17] LABS: Alanine Aminotransferase 22 U/L (0-41); Albumin Level 2.7 g/dL (3.5-5.2); Alkaline Phosphatase 86 U/L (40-130); Anion Gap 13.4 (5-19); Aspartate Amino Transferase 18 U/L (0-40); Blood Urea Nitrogen 8 mg/dL (6-20); Calcium 8.2 mg/dL (8.5-10.5); Carbon Dioxide 22 mmol/L (22-29); Chloride 101 mmol/L (98-107); Globulin 3.5 g/dL (1.3-4.6); Glomerular Filtration Rate 149.2 mL/min (90-130); Glucose 177 mg/dL (65-115); Osmolality Calculated 279 mOsm/kg (285-295); Potassium 3.4 mmol/L (3.5-5.1); Sodium 133 mmol/L (136-145); Total Bilirubin 1.1 mg/dL (0.15-1.2); Total Protein 6.2 g/dL (6.6-8.7); Triglycerides 418 mg/dL (0-150)
[2022-05-06 13:09] LABS: LDL Cholesterol Direct 117 mg/dL (0-100)
--- NOTE | 2022-05-06 14:10 | CTR_ITS ---
PROCEDURE INFORMATION: Exam: CT Head Without Contrast Exam date and time: 05/06/2022 4:50 PM Age: 41 years old Clinical indication: Pain; Headache; Additional info: Perssiting headcahe TECHNIQUE: Imaging protocol: Computed tomography of the head without contrast. Radiation optimization: All CT scans at this facility use at least one of these dose optimization techniques: automated exposure control; mA and/or kV adjustment per patient size (includes targeted exams where dose is matched to clinical indication); or iterative reconstruction. REPORTING DATA: Count of CT and Cardiac NM exams in prior 12 months: This patient has received 2 known CTs and 0 known cardiac nuclear medicine studies in the 12 months prior to the current study. COMPARISON: No relevant prior studies available. RADIATION DOSE METRICS: Total DLP (mGy-cm): 1147.95 FINDINGS: Brain: Unremarkable. No hemorrhage. No significant white matter disease. No edema. Cerebral ventricles: No ventriculomegaly. Paranasal sinuses: Visualized sinuses are unremarkable. No air fluid levels. Mastoid air cells: Unremarkable as visualized. No mastoid effusion. Bones/joints: Unremarkable. No acute fracture. Soft tissues: Unremarkable. CT/CT head wo con* [id number] IMPRESSION: No acute intracranial abnormality demonstrated.
[2022-05-06 16:46] LABS: Glucose Point of Care 169 mg/dL (70-110)
--- NOTE | 2022-05-06 18:09 | PM.PN ---
Subjective Subjective: Afebrile, hemodynamically stable, tolerating a clear liquid diet. States that pain appears to be improved over yesterday however still persisting. He has had 2-3 episodes of loose bowel movements since yesterday evening. Afebrile. Hemodynamically stable. Complains of a headache, 5 out of 10 only partially relieved by pain medication. Medications: Reviewed: Yes Vitals/I&O/Wt Last Vital Signs Temp 99.2 F 05/06/22 12:00 Pulse 65 05/06/22 14:00 Resp 16 05/06/22 12:00 BP 132/81 05/06/22 12:00 Pulse Ox 92 05/06/22 12:00 O2 Del Method 05/06/22 12:00 O2 Flow Rate 1 05/06/22 08:00 05/06/22 05/06/22 05/06/22 06:59 14:59 22:59 Intake Total 1240 / 4300 2881 / 2881 1000 / 3881 Balance 1240 / 4300 2881 / 2881 1000 / 3881 Physical Exam Narrative: General: No acute distress, AO x3 HEENT: PERRLA, pupils bilaterally equal and reactive, pallors not present Chest: Normal vesicular breath sounds, no added sounds, equal good air entry bilaterally CVS: S1-S2 regular, no murmurs, no tachycardia, no gallops, no rubs Abdomen: Soft, less tender compared to previous exams. Neuro: No focal deficits, no facial deformity, AO x3, power 5/5 in all limbs Data 05/06/22 11:48 05/06/22 11:48 A&P Assessment and plan (1) Acute pancreatitis: Acute pancreatitis,likely secondary to hypertriglyceridemia. Triglyceride level 1700 upon admission, now trended down to 418 with continuous insulin infusion. Negative alcohol level. No signs of biliary obstruction. Normal LFTs. Started gemfibrozil 600 mg p.o. twice daily. Continue IV fluids normal saline's with KCl at 100 cc an hour. Tolerated a clear liquid diet yesterday. Will advance to full liquid today and assess for tolerability. If continues to tolerate a diet over the next 24 hours may be nearing closer to discharge. (2) Hypertriglyceridemia: As above. (3) Diabetes mellitus: This is a new diagnosis for the patient. HbA1c of 11. Started on insulin lantus 15 U and insulin sliding scale which he is tolerating well (4) Ileus: No longer a concern. Patient is passing flatus, having bowel movement. No nausea or vomiting. (5) SIRS (systemic inflammatory response syndrome): Has evidence by leukocytosis, tachycardia, tachypnea Likely related to acute pancreatitis. currently improving Plan Persistent headcahe: Check CT head Attestations Medical Necessity Statement*: advance diet as tolerated, assess for tolerability, check c diff for diarrhea, CT head due to persistent headache Coding Level of Care Code Acute Code for g Fwd Diagnoses Acute pancreatitis K85.90 Hypertriglyceridemia E78.1 Diabetes mellitus E11.9 Ileus K56.7 SIRS (systemic inflammatory response syndrome) R65.10
[2022-05-06] MEDS: fentaNYL 25 mcg Patch 1 PATCH TRANSDERMA (18:43)
[2022-05-06] MEDS: lidocaine 1% 5 ML in potassium chloride premix 100 ML 52.5 ML IV (18:47)
[2022-05-06] MEDS: enoxaparin 40 mg/0.4 mL Syringe SUBCUT (21:10)
[2022-05-06] MEDS: insulin glargine 100 units/1 mL 15 UNIT SUBCUT (21:11)
[2022-05-06 22:15] LABS: Glucose Point of Care 160 mg/dL (70-110)
[2022-05-07] MEDS: ketorolac 30 mg/mL INJ 15 MG IVP (00:07)
[2022-05-07 04:00] VITALS: BP 124/76; PULSE 99; RESP 16; TEMP 37; O2SAT 92
[2022-05-07 04:46] LABS: Basophils # 0.1 10^3/uL (0.0-0.1); Basophils % 0.6 %; Eosinophils # 0.2 10^3/uL (0.0-0.8); Eosinophils % 1.8 %; Hematocrit 39.7 % (42.0-52.0); Hemoglobin 12.8 g/dL (11.7-16.6); Lymphocytes # 2.1 10^3/uL (0.8-4.8); Lymphocytes % 16.8 %; Mean Corpuscular HGB Conc 32.2 g/dL (30.0-36.0); Mean Corpuscular Hemoglobin 26.5 pg (28.0-34.0); Mean Corpuscular Volume 82.2 fl (80-94); Mean Platelet Volume 10.8 fL (7.4-10.4); Monocytes # 1.4 10^3/uL (0.2-0.9); Neutrophils # 7.98 10^3/uL (1.8-7.7); Neutrophils % 64.7 %; Nucleated Red Blood Cells % 0 %; Platelet Count 187 10^3/cmm (130-400); Red Blood Count 4.83 10^6/uL (4.1-5.3); Red Cell Distribution Width 14.6 % (12.1-15.1); White Blood Count 12.4 10^3/uL (4.0-10.0)
[2022-05-07 05:07] LABS: Alanine Aminotransferase 25 U/L (0-41); Albumin Level 2.8 g/dL (3.5-5.2); Alkaline Phosphatase 116 U/L (40-130); Anion Gap 14.5 (5-19); Aspartate Amino Transferase 23 U/L (0-40); Blood Urea Nitrogen 9 mg/dL (6-20); Calcium 8.3 mg/dL (8.5-10.5); Carbon Dioxide 23 mmol/L (22-29); Chloride 104 mmol/L (98-107); Globulin 3.2 g/dL (1.3-4.6); Glomerular Filtration Rate 124.9 mL/min (90-130); Glucose 156 mg/dL (65-115); Osmolality Calculated 288 mOsm/kg (285-295); Potassium 3.5 mmol/L (3.5-5.1); Sodium 138 mmol/L (136-145); Total Bilirubin 0.7 mg/dL (0.15-1.2); Triglycerides 328 mg/dL (0-150)
[2022-05-07 06:49] LABS: Glucose Point of Care 159 mg/dL (70-110)
[2022-05-07 07:34] VITALS: BP 149/87; PULSE 101; RESP 18; TEMP 36.9; O2SAT 93
[2022-05-07] MEDS: insulin lispro 100 unit/1 mL SUBCUT (07:44)
[2022-05-07] MEDS: gemfibrozil 600 mg Tablet PO (07:45)
[2022-05-07] MEDS: pantoprazole 40 mg SDV IVP (08:50)
--- NOTE | 2022-05-07 09:12 | PM.DCS ---
Discharge Providers Date of Admission: 05/02/22 18:34 Date of Discharge: May 07, 2022 Attending Provider at Admission: Kaylen Son MD Attending Provider at Discharge: Kaylen Son MD Diagnoses at Discharge Discharge Diagnosis (1) Acute pancreatitis: Status: Acute (2) Hypertriglyceridemia: Status: Acute (3) Diabetes mellitus: Status: Acute (4) Ileus: Status: Acute (5) SIRS (systemic inflammatory response syndrome): Status: Acute Reason for Visit Reason for Visit: n/v chest pain Hospital Course Hospital Course 41M, primary [place] speaking, without known medical comorbidties was admitted to the hospital with c.o abdominal pain, nausea and vomiting that started after having lunch. He was found to have SIRS related to acute pancreatitis with elevted TG levels > 1700 and new diagnosis of DM with Hba1c ~ 11. Etiology of pancreatitis was hypertriglyceridemia induced. Alcohol level was negative. biliary system unremarkable on imaging. PAtient was treated initially in the ICU with insulin drip until TG level was 500, thereafter switched to basal bolus insulin regimen. His BG at presentation was > 400 without signs of DKA. At discharge he has been initiated on 15 units lantus and 4 units pre meal insulin. Instrcuted to maintain a blood glucose chart to take to his PCP and endocrinology visits. PAtient was provided referral for both. Provided extensive lifestyle and dietary modification counselling. Insulin education provided re: usage of insulin pens. Overall > one hour was spen in counselling patient and family members. HE is tolerating a full liquid diet at discharge, his abdominal pain is peristsibg but much improved at discharge. Counselled regarding potential complications of pancreatitis including necrosis, hemorrhage, psuedocyst. He is no longer nauseous, having good BM. Discharged home in improved condition with recommendation to slowly advance diet as tolerated over the next week. Instructed to return to ER in case of worsening pain Physical Exam Narrative: General: No acute distress, AO x3 HEENT: PERRLA, pupils bilaterally equal and reactive, pallors not present Chest: Normal vesicular breath sounds, no added sounds, equal good air entry bilaterally CVS: S1-S2 regular, no murmurs, no tachycardia, no gallops, no rubs Abdomen: Soft, nontender, no organomegaly, bowel sounds present Neuro: No focal deficits, no facial deformity, AO x3, power 5/5 in all limbs Discharge Data Studies Completed and Pending Completed Studies During Hospitalization Category Date Time Status CT abdomen pelvis wo con [id number] Stat Cat Scan 05/02/22 16:[address] angio chest PE protcl [id number] Stat Cat Scan 05/02/22 13:[address] head wo con* [id number] Routine Cat Scan 05/06/22 14:10 Completed CXRP [XR chest 1V portable [id number]] AM LABS Exams 05/04/22 04:00 Completed XR abdomen 1V* [id number] AM LABS Exams 05/04/22 04:00 Completed XR chest 1V portable [id number] Urgent Exams 05/02/22 12:33 Completed Radiology Impressions Chest CTA 05/02/22 13:16 IMPRESSION: 1. Edema at the pancreatic tail. Possible acute interstitial edematous pancreatitis. Correlate with pancreatic enzyme levels and consider abdomen CT. 2. Severe hepatic steatosis. 3. Moderate splenic enlargement. 4. No pulmonary embolism. Abdomen/Pelvis CT 05/02/22 16:11 IMPRESSION: 1. Acute pancreatitis. 2. Hepatomegaly and hepatic steatosis. Abdomen X-Ray 05/04/22 04:00 IMPRESSION: Nonspecific bowel gas pattern Chest X-Ray 05/04/22 04:00 IMPRESSION: Unremarkable frontal portable chest x-ray. Head CT 05/06/22 14:10 IMPRESSION: No acute intracranial abnormality demonstrated. Laboratory Results WBC 12.4 10^3/uL (4.0-10.0) H 05/07/22 04:14 RBC 4.83 10^6/uL (4.1-5.3) 05/07/22 04:14 Hgb 12.8 g/dL (11.7-16.6) 05/07/22 04:14 Hct 39.7 % (42.0-52.0) L 05/07/22 04:14 MCV 82.2 fl (80-94) 05/07/22 04:14 MCH 26.5 pg (28.0-34.0) L 05/07/22 04:14 MCHC 32.2 g/dL (30.0-36.0) 05/07/22 04:14 RDW 14.6 % (12.1-15.1) 05/07/22 04:14 Plt Count 187 10^3/cmm (130-400) 05/07/22 04:14 MPV 10.8 fL (7.4-10.4) H 05/07/22 04:14 Neut % (Auto) 64.7 % 05/07/22 04:14 Lymph % (Auto) 16.8 % 05/07/22 04:14 Norton % (Auto) 11.0 % 05/07/22 04:14 Eos % (Auto) 1.8 % 05/07/22 04:14 Baso % (Auto) 0.6 % 05/07/22 04:14 Neut # (Auto) 7.98 10^3/uL (1.8-7.7) H 05/07/22 04:14 Lymph # (Auto) 2.1 10^3/uL (0.8-4.8) 05/07/22 04:14 Norton # (Auto) 1.4 10^3/uL (0.2-0.9) H 05/07/22 04:14 Eos # (Auto) 0.2 10^3/uL (0.0-0.8) 05/07/22 04:14 Baso # (Auto) 0.1 10^3/uL (0.0-0.1) 05/07/22 04:14 Nucleated RBC % (auto) 0 % 05/07/22 04:14 Nucleated RBCs # 0.0 /100WBC 05/07/22 04:14 Specimen Type Arterial 05/02/22 13:25 Sample Site Radial, left 05/02/22 13:25 ABG pH 7.41 (7.35-7.45) 05/02/22 13:25 ABG pCO2 49.2 mmHg (35-45) H 05/02/22 13:25 ABG pO2 79.8 mmHg (80.0-100.0) L 05/02/22 13:25 ABG HCO3 30.9 mmol/L (22-26) H 05/02/22 13:25 ABG O2 Saturation 96.8 05/02/22 13:25 ABG Base Excess 4.9 mmol/L (-2.0-2.0) H 05/02/22 13:25 Bennett Test Pos 05/02/22 13:25 A-a O2 Gradient 1.2 mmHg (5-10) L 05/02/22 13:25 Hematocrit 49.7 % (42-52) 05/02/22 13:25 Hgb O2 Saturation 92.4 % (95-100) L 05/02/22 13:25 Carboxyhemoglobin 1.6 %THgb (0.4-20.1) 05/02/22 13:25 Methemoglobin 2.9 % (0.4-1.5) H 05/02/22 13:25 Total Hemoglobin 16.2 g/dL (14-18) 05/02/22 13:25 Sodium 140.0 mmol/L (131-143) 05/02/22 13:25 Potassium 3.6 mmol/L (3.5-5.0) 05/02/22 13:25 Glucose 459.0 mg/dL (70-115) H 05/02/22 13:25 Ionized Calcium 1.2 mmol/L (1.1-1.4) 05/02/22 13:25 O2 Delivery Device Nc 05/02/22 13:25 O2 Liters/Min 228.0 % 05/02/22 13:25 Chief Construction Inspector ID Broma 05/02/22 13:25 Sodium 138 mmol/L (136-145) 05/07/22 04:14 Potassium 3.5 mmol/L (3.5-5.1) 05/07/22 04:14 Chloride 104 mmol/L (98-107) 05/07/22 04:14 Carbon Dioxide 23 mmol/L (22-29) 05/07/22 04:14 Anion Gap 14.5 (5-19) 05/07/22 04:14 BUN 9 mg/dL (6-20) 05/07/22 04:14 Creatinine 0.7 mg/dL (0.7-1.2) 05/07/22 04:14 GFR Calculation 124.9 mL/min (90-130) 05/07/22 04:14 Glucose 156 mg/dL (65-115) H 05/07/22 04:14 POC Glucose 159 mg/dL (70-110) H 05/07/22 06:34 Estimat Average Glucose 272 05/02/22 12:50 Hemoglobin A1c 11.1 % (4.0-6.0) H 05/02/22 12:50 Calculated Osmolality 288 mOsm/kg (285-295) 05/07/22 04:14 Calcium 8.3 mg/dL (8.5-10.5) L 05/07/22 04:14 Phosphorus 2.0 mg/dL (2.5-4.5) L 05/04/22 02:36 Magnesium 2.0 mg/dL (1.7-2.3) 05/04/22 02:36 Total Bilirubin 0.7 mg/dL (0.15-1.2) 05/07/22 04:14 AST 23 U/L (0-40) 05/07/22 04:14 ALT 25 U/L (0-41) 05/07/22 04:14 Alkaline Phosphatase 116 U/L (40-130) 05/07/22 04:14 Troponin T Baseline 6 ng/L (0-15) 05/02/22 12:50 Troponin T 120 Minute 6.00 ng/L (0-15) 05/02/22 14:40 Delta Troponin T 0 ABS# (0-10) 05/02/22 14:40 Troponin T Hi Sens 6Hr 6.00 ng/L (0-15) 05/02/22 19:55 Troponin T Hi Sens 6Hr Delta 0 ng/L (0-12) 05/02/22 19:55 Total Protein 6.0 g/dL (6.6-8.7) L 05/07/22 04:14 Albumin 2.8 g/dL (3.5-5.2) L 05/07/22 04:14 Globulin 3.2 g/dL (1.3-4.6) 05/07/22 04:14 Triglycerides 328 mg/dL (0-150) H 05/07/22 04:14 Cholesterol 462 mg/dL (0-200) H 05/03/22 02:25 LDL Cholesterol Direct 117 mg/dL (0-100) H 05/06/22 11:48 LDL Cholesterol, Calc Not Reportable 05/03/22 02:25 HDL Cholesterol 20 mg/dL (60-100) L 05/03/22 02:25 LDL/HDL Ratio Not Reportable 05/03/22 02:25 Cholesterol/HDL Ratio 23.10 mg/dL (1.0-5.00) H 05/03/22 02:25 Lipase 1795 U/L (13-60) H 05/02/22 17:39 Urine Opiates Screen Positive ng/mL (Negative) H 05/02/22 23:30 Ur Barbiturates Screen Negative ng/mL (Negative) 05/02/22 23:30 Ur Phencyclidine Scrn Negative ng/mL (Negative) 05/02/22 23:30 Ur Amphetamines Screen Negative ng/mL (Negative) 05/02/22 23:30 U Benzodiazepines Scrn Negative ng/mL (Negative) 05/02/22 23:30 Urine Cocaine Screen Negative ng/mL (Negative) 05/02/22 23:30 U Marijuana (THC) Screen Negative ng/mL (Negative) 05/02/22 23:30 Ethyl Alcohol < 10 mg/dL (0-10) 05/02/22 19:55 Serum Ketones Negative (Negative) 05/02/22 16:40 Vitals Last Vital Signs Temp 98.4 F 05/07/22 07:34 Pulse 101 H 05/07/22 07:34 Resp 18 05/07/22 07:34 BP 149/87 05/07/22 07:34 Pulse Ox 93 05/07/22 07:34 O2 Del Method 05/07/22 04:00 O2 Flow Rate 1 05/06/22 08:00 Discharge Plan Discharge Patient Disposition: Home Condition: Stable Prescriptions: New Lantus Solostar U-100 Insulin 100 unit/mL (3 mL) insulin pen 15 unit SUBCUT QAM 30 Days Qty: 4.5 0RF insulin lispro 100 unit/mL insulin pen 10 unit SUBCUT TID 30 Days Qty: 9 0RF acetaminophen 325 mg Tablet 650 mg PO Q6H PRN (Reason: Mild Pain) Qty: 0 0RF insulin glargine 100 unit/mL Solution 15 unit SUBCUT BEDTIME 30 Days Qty: 30 2RF gemfibrozil 600 mg Tablet 600 mg PO BID 30 Days Qty: 60 2RF Humalog U-100 Insulin 100 unit/mL Solution 5 unit SUBCUT 3XD 30 Days Qty: 4.5 2RF Protonix 40 mg tablet,delayed release (DR/EC) 40 mg PO DAILY 28 Days Qty: 30 2RF Percocet 5-325 mg tablet 1 tab PO Q8H PRN (Reason: pain) 7 Days Qty: 21 0RF ketorolac 10 mg tablet 10 mg PO Q8H PRN (Reason: pain) 5 Days Qty: 14 0RF (DME) BD Gabriela 2nd Gen Pen Needle 32 gauge x 5/32 needle See Rx Instructions .Route Qty: 50 1RF Rx Instructions: As directed Discontinued acetaminophen [Tylenol Ex Str Rapid Release] 500 mg Tablet 1,000 mg PO Q6H PRN (Reason: Pain) Discharge Orders: Discharge Order (Routine); Ordered 05/07/22 Ordered By: Kaylen Son Referrals: [facility] [Provider Group] (no follow up needed. Referral field for office information only faxed infomation [phone]) Yo Nelson MD [Referring] - 05/14/22 9:00 am Starla Hartman MD [Physician] - 06/21/22 8:00 am (newly diagnosed DM, hypertiglyceridemia induced pancreatitis s/p hospital admission , newly started on insulin ) Discharge Diet: Advance as tolerated Discharge Activity: Increase activity as tolerated Patient Instructions: Diabetes and Diet, Oxycodone/Acetaminophen (By mouth), Gemfibrozil (By mouth), Ketorolac (By mouth) (Toradol), Pantoprazole (By mouth), Insulin Glargine (By injection) (Lantus, Lantus SoloStar, Toujeo, Semglee), Insulin Lispro (By injection) (HumaLOG, HumaLOG Pen, Lispro-PFC,..., Pancreatitis (GEN), Type 2 Diabetes Management for Adults (GEN), Opioid Safety Plan of Treatment: take insulin as directed. follow up with your doctors. Call Dr. son office for any questions until established with overlock waistline joiner or primary care doctor Discharge Attestations Time Spent in Discharge Care*: greater than 30 min Quality Metrics Clinical Quality Measures [ No reported AMI, CVA or VTE this stay] Coding Level of Care Code Acute Code for Chg Fwd Diagnoses Acute pancreatitis K85.90 Hypertriglyceridemia E78.1 Diabetes mellitus E11.9 Ileus K56.7 SIRS (systemic inflammatory response syndrome) R65.10
[2022-05-07 11:33] VITALS: BP 141/78; PULSE 99; RESP 18; TEMP 36.4; O2SAT 92
== END 2022-05-07 12:30 | disposition home or self-care (01) | DRG 439 ==
LOC: ER 16:19 → MEDSURG 18:34 → ICU 21:21 → MEDSURG 05-05 15:01
PROVIDERS: Internal Medicine; Physician Assistant; Admitting Provider Student in an Organized Health Care Education/Training Program; Emergency Provider Family Medicine; Visit Provider Student in an Organized Health Care Education/Training Program
DX: K85.90 Acute pancreatitis without necrosis or infection, unspecified (principal); K56.7 Ileus, unspecified; E11.65 Type 2 diabetes mellitus with hyperglycemia; E78.1 Pure hyperglyceridemia
CPT/HCPCS: 36415; 36416; 36600; 70450; 71045; 71275; 74018; 74176; 80048; 80051; 80053; 80061; 80306; 80307; 82009; 82330; 82805; 82962; 83036; 83690; 83721; 83735; 84100; 84478; 84484; 85025; 93005; 96372; 96374; 96375; 96376; 99285; C9113; J1200; J1650; J1815; J1885; J2270; J2405; J2765; J2920; J3475; J3480; J7030; J7050; J7799; Q3014; Q9967